=== PATIENT | female | born 1985 | race Caucasian/White ===

== ENCOUNTER 2016-12-31 19:38 | Observation (INO) ==
[2016-12-31] MEDS ORDERED: BENZTROPINE 2 MG/2 ML AMP ONE ×3 (19:51→21:15)
[2016-12-31] MEDS ORDERED: BENZTROPINE 2 MG/2 ML AMP IV ONE ×2 (19:55→21:16)
[2016-12-31] MEDS ORDERED: LORazepam 2 MG/1 ML VIAL IV STA (20:02)
[2016-12-31] MEDS ORDERED: LORazepam 2 MG/1 ML VIAL ONE (20:03)
--- NOTE | 2016-12-31 20:22 | EKG Report ---
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
[2016-12-31] MEDS ORDERED: SODIUM CHLORIDE 0.9% 1,000 ML IV STA (20:23)
--- NOTE | 2016-12-31 20:47 | CT Report ---
History: Agitation and irritability. Involuntary movements. Headaches Date: 12/31/2016 Study: CT head without contrast Comparison exam: No previous head CT available Transaxial CT sections were obtained through the head without IV contrast. Total DLP measures 1042.6 mGy*cm. The CT exam was performed using one or more of the following dose reduction techniques: Automated exposure control and adjustment of the mA and/or kV according to patient size. The ventricles are midline in position without evidence of hydrocephalus. There is no mass or parenchymal hemorrhage. There is no gross CT evidence of acute cortical stroke. There is no extra-axial hematoma. The partially visualized paranasal sinuses and mastoid air cells are clear. There is no acute extra-axial hematoma. Impression: No acute intracranial process PROCEDURE INTERPRETED AT [facility] DEPARTMENT OF RADIOLOGY Final Report Signed by: Dr. Melanie Flood
[2016-12-31 20:51] LABS: Basophils # 0.1 10*3/uL (0.0-0.2); Basophils % 0.7 % (0.0-0.8); Eosinophils # 0.1 10*3/uL (0.0-0.87); Eosinophils % 1.1 % (0.00-10.9); Hematocrit 37.8 VOL% (35.7-47.0); Hemoglobin 12.6 GM/DL (12.0-16.0); Immature Granulocytes % 0.1 %; Immature Granulocytes Absolute 0.01 #; Lymphocytes # 1.7 10*3/uL (1.4-4.0); Lymphocytes % 23.1 % (21.3-54.2); Mean Corpuscular HGB Conc 33.3 GM/DL (32-36); Mean Corpuscular Hemoglobin 29 PG (27-34); Mean Corpuscular Volume 87.5 FL (87-102); Mean Platelet Volume 9.4 FL (9.6-12.0); Monocytes # 0.6 10*3/uL (0.11-0.8); Monocytes % 7.9 % (1.7-12.7); Neutrophils # 4.8 10*3/uL (1.4-7.4); Neutrophils % 67.1 % (38.7-73.9); Platelet Count 280 T/CUMM (130-400); Red Blood Count 4.32 MC/CUMM (3.8-5.5); Red Cell Distribution Width 12.1 % (9.3-17.3); White Blood Count 7.2 T/CUMM (4-12)
--- NOTE | 2016-12-31 20:57 | XRay Report ---
History: Chest pain Date: 12/31/2016 Study: Chest x-ray single view portable Comparison exam: Chest x-ray January 12, 2009 The cardiomediastinal silhouette and pulmonary vasculature are unremarkable. The lungs are well-expanded and clear. There is no gross pleural effusion. The osseous structures are unchanged. Impression: No acute cardiopulmonary process compared to the previous study PROCEDURE INTERPRETED AT [facility] DEPARTMENT OF RADIOLOGY Final Report Signed by: Dr. Melanie Flood
--- NOTE | 2016-12-31 20:59 | Emergency Department Note ---
IKane Kasabria, am scribing for, and in the presence of, Weston Marks MD 19:59. IKendrick Charles R, MD, personally performed the services described in this documentation, ascribed by Marilyn Middleton in my presence, and it is both accurate and complete . Arrival - Arrival Chief Complaint: Non-Specific ED Nursing Triage Note: C/O Aggitation/Irritability and involuntary movements s/ p taking Imatrex for migraine. Family reports that she developed headache while shopping today went home and took an imatrex which is prescribed PRN for migraines and she has taken in the past. Pt took cymbalta which she has been on for about a month earlier in the day. Pt reports that she felt very aggitated/ irritable and angry after taking the imatrex, she has never taken the two medications in the same day before. Pt was given Benadryl 20mg/Versed 5mg by EMS with relief of aggitation Mode of Arrival: Stretcher Source: Patient Time Seen by Provider: 12/31/16 19:42 - History of Present Illness HPI Narrative: This is a 31 y/o white female presenting to the ED with c/o irritability and involuntary movements that onset this after s/p taking Imatrex for migraine. Family states this is the first time the pt has take Imatrex and Cymbalta in conjunction. According to the family the pt developed a headache while shopping today so she went home and took Imatrex which was prescribed to her by a PRN for migraines. Pt has not taken this medication since becoming four years ago. After taking the medications she became angry and felt agitated. Pt began shaking uncontrollably. EMS arrived and gave the pt Benadryl 20mg/ Versed which she responded well to and relieved her agitation. Family states she had a TMJ previously and was prescribed Lyrica. She only took this medication once and did not like the way it made her feel. Pt appears lethargic but denies fever , chills, nausea, vomiting, diarrhea, numbness, tingling, vision change, chest pain, SOB, and airway compromise. Her PMHx is unremarkable. Consistency: constant Severity: moderate Date of Last Menstrual Period: 4 weeks ago- Pt has IUD in place Allergies/Adverse Reactions: Allergies Allergy/AdvReac Type Severity Reaction Status Date / Time Pertussis Vaccines Allergy Intermediate RASH Verified 12/31/16 19:42 promethazine [From Phenergan] AdvReac Severe Shakiness Verified 12/31/16 21:23 tramadol [From Ultram] AdvReac Severe Shakiness Verified 12/31/16 21:22 Home Medications: Home Medications Medication Instructions Recorded Confirmed Type Unable To Obtain [Unable to Obtain] 12/31/16 12/31/16 History Review of System - Review of System 12 point system: reviewed and no additional remarkable complaints except as stated - Review of System Constitutional: Absent: chills, fever, weakness Eyes: Absent: vision change Head/Ears/Nose/Throat: Absent: nasal drainage Respiratory: Absent: cough, wheezing Cardiovascular: Absent: chest pain, dyspnea on exertion, syncope Gastrointestinal: Absent: abdominal pain, nausea, vomiting Genitourinary female: Absent: dysuria Musculoskeletal: Absent: arm pain, back pain, leg pain, neck pain Skin: Absent: rash Neurological: Absent: headache, weakness, numbness, confusion, abnormal gait, vertigo Psychiatric: Absent: anxiety Endocrine: Absent: fatigue Hematological/Lymphatic: Absent: easy bleeding Medical,Surgical,& Family Hx - Medical History Psychological: History of: Depression Neurology: History of: Migraine - Social History Smoking Status: Never smoker Frequency of Alcohol Use: None Type of Drug Use: None Exam Vital Signs: Vital Signs Temperature 98.9 F 12/31/16 19:38 Pulse Rate 95 H 12/31/16 21:13 Respiratory Rate 15 12/31/16 21:13 Blood Pressure 115/75 12/31/16 21:13 O2 Sat by Pulse Oximetry 100 12/31/16 21:13 - General General appearance: alert, in no apparent distress, other (EPS) - Head Head exam: Present: atraumatic, normocephalic, normal inspection - Eye Eye exam: Present: PERRL, EOMI, nystagmus (vertical ). Absent: normal appearance - ENT ENT exam: Present: normal exam, normal oropharynx, mucous membranes moist, TM's normal bilaterally, normal external ear exam - Neck Neck exam: Present: normal inspection, full ROM, trachea midline. Absent: tenderness - Chest Chest inspection: Present: normal inspection, symmetric chest wall rise. Absent : tenderness - Respiratory Respiratory exam: Present: normal lung sounds bilaterally - Cardiovascular Cardiovascular exam: Present: regular rate, normal rhythm, normal heart sounds - Abdominal Exam Abdominal exam: Present: soft, normal bowel sounds. Absent: distention, tenderness - Extremities Exam Extremities exam: Present: normal inspection, full ROM, normal capillary refill. Absent: tenderness, pedal edema, calf tenderness - Back Exam Back exam: Present: normal inspection, full ROM. Absent: tenderness - Neurological Exam Neurological exam: Present: alert, oriented X3, CN II-XII intact, normal gait. Absent: reflexes normal (hyperreflexia ) - Psychiatric Psychiatric exam: Present: normal affect, normal mood - Skin Skin exam: Present: warm, dry, intact, normal color. Absent: rash, diaphoresis Course Course Narrative: Medication the patient takes is Adderall XR daily, Cymbalta, Imitrex as needed - Reevaluation(s) Reevaluation #1: Patient doing much better sleeping comfortably no more EPS symptoms Time: 20:59 - Consultations Consultation #1: Dr. Glynn will admit patient Time: 21:48 Results - Labs CBC & BMP: 12/31/16 20:18 12/31/16 20:18 Lab Results: I have reviewed the patients labs Critical Care Time Critical Care Time: Yes Total Critical Care Time: 60 Disposition Clinical Impression: Adverse medication side effect, Extrapyramidal movements present Case discussed with: patient, patient's family Disposition: Still a Patient Condition: Stable Time of Disposition: 21:49
[2016-12-31 21:09] LABS: Alanine Aminotransferase 27 U/L (13-56); Albumin 3.7 G/DL (3.4-5.0); Alkaline Phosphatase 50 U/L (45-117); Aspartate Amino Transferase 18 U/L (0-37); Bilirubin,Total < 0.39 MG/DL (0.2-1.0); Blood Urea Nitrogen 14 MG/DL (7-18); Calcium 8.9 MG/DL (8.5-10.1); Glucose 75 MG/DL (74-106); Osmolality,Calculated 291.4 MOS/KG (273-304); Potassium 4.1 MMOL/L (3.5-5.1); Sodium 147 MMOL/L (136-145); Total Protein 6.2 G/DL (6.4-8.3); Troponin I Only < 0.015 NG/ML (0.00-0.045)
[2016-12-31 21:22] LABS: Amorphous Crystals,Urine Occasional /HPF (Few); Apearance,Urine CLOUDY (Clear); Bacteria,Urine Occasional /HPF (Few); Bilirubin,Urine Negative (Negative); Blood, Urine Negative (Negative); Glucose,Urine (UA) Negative (Negative); Ketones,Urine Negative (Negative); Mucus,Urine Occasional /LPF (Occasional); Nitrite,Urine Negative (Negative); Protein,Urine Negative; Squamous Epithelial Cell,Urine Occasional /HPF (0-10); Urine Color Yellow (Yellow); Urine Specific Gravity 1.014 (1.001-1.035); Urine Urobilinogen < 2.0 EU/DL (0.2-1.0)
[2016-12-31 21:30] LABS: Barbiturates Screen,Urine Negative (Negative); Benzodiazepines Screen,Urine Positive (Negative); Cannabinoid Screen,Urine Negative (Negative); Opiate Screen,Urine Negative (Negative); Phencyclidine Screen,Urine Negative (Negative)
[2016-12-31] MEDS ORDERED: ACETAMINOPHEN 325 MG TABLET PO PRN (21:36)
[2016-12-31] MEDS ORDERED: ONDANSETRON 4 MG/2 ML VIAL IV PRN (21:36)
[2016-12-31] MEDS ORDERED: BENZTROPINE 2 MG/2 ML AMP IM PRN (22:19)
[2016-12-31] MEDS ORDERED: diphenhydrAMINE 50 MG/1 ML VIAL IV PRN (22:19)
[2016-12-31] MEDS ORDERED: LORazepam 2 MG/1 ML VIAL IV PRN (22:21)
--- NOTE | 2016-12-31 22:23 | Hospitalist History & Physical ---
Assessment and Plan (1) Extrapyramidal movements present Status: Acute Assessment and plan: admit for observation. This is liekly a medication reaction from the combination of cymbalta and imitrex. Treat with Benadryl and Cogentin PRN as well as Ativan PRN Hydrate with IVF. Home in AM if movements have improved. Current Visit: Yes History of Present Illness Chief complaint: Muscle spasms and agitation History of present illness: Ms. Mars is a 31 year old female that presented to the ED with c/o irritability and involuntary movements that started this evening after taking Imitrex for migraines. She reports having a migraine for the last 2 days. She has had them before. Family states this is the first time the patient has take Imitrex and Cymbalta together. According to the family, the patient developed a headache while shopping today so she went home and took Imitrex which was prescribed PRN for migraines. Pt has not taken this medication since becoming four years ago. After taking the medications she became angry and felt agitated. Pt began shaking uncontrollably. EMS arrived and gave the pt Benadryl and Versed which she responded well to and relieved her agitation. Family states she had TMJ previously and was prescribed Lyrica. She only took this medication once and did not like the way it made her feel. Pt appears lethargic but denies fever, chills, nausea, vomiting, diarrhea, numbness, tingling, vision change, chest pain, SOB, and airway compromise. Her PMHx is significant for Fibromyalgia treated with cymbalta and migraines. The history was relayed by the patients spouse due to her being sedated with cogentin, benadryl and ativan in the ER. She appears much more comfortable now. I have been asked to admit the patient for observation for her EPS sx's. At the time of my exam, the patients EPS movements had improved with treatment in the ER. Home Medications Medication Instructions Recorded Confirmed Type Unable To Obtain [Unable to Obtain] 12/31/16 12/31/16 History Allergies Allergy/AdvReac Type Severity Reaction Status Date / Time Pertussis Vaccines Allergy Intermediate RASH Verified 12/31/16 19:42 promethazine [From Phenergan] AdvReac Severe Shakiness Verified 12/31/16 21:23 tramadol [From Ultram] AdvReac Severe Shakiness Verified 12/31/16 21:22 Medical,Surgical,& Family Hx - Medical History Cardio: No history of: Hypertension (hx of low BP) Psychological: History of: Depression Neurology: History of: Migraine Rheumatology: History of;: Fibromyalgia - Surgical History Abdominal Surgeries: Surgical HX of: Cholecystectomy Reproductive Surgeries: Surgical HX of;: Section - Family History Family History: Reports;: Additional Family History (mother with esophageal Cancer) - Social History Smoking Status: Former smoker Have you smoked in the last 12 months: No Frequency of Alcohol Use: None Type of Drug Use: None Marital Status: Lives With:: Spouse Functional capacity: independent ambulation ROS unobtainable: due to mental status (sedated with benadryl, ativan and cogentin) Exam - Constitutional Vitals: Period Temp Pulse Resp BP Sys/Cazares Pulse Ox Last 24 Hr 98.9 F-98.9 F 95-111 15-28 114-123/72-83 99-100 General appearance: no acute distress - Head Head exam: Present: normal inspection, normocephalic, atraumatic - ENT ENT exam: Present: normal exam - Neck Neck exam: Present: normal inspection. Absent: lymphadenopathy - Respiratory Respiratory exam: Present: clear to auscultation bilaterally - Cardiovascular Cardiovascular exam: Present: regular rate and rhythm - GI/Abdominal GI/Abdominal exam: Present: normal bowel sounds, soft. Absent: tenderness, rebound - Extremities Exam Extremities exam: Present: normal inspection. Absent: edema - Neurological Exam Neurological exam: Present: other (sleepy/sedated after medication administration in ER) - Skin Skin exam: Present: normal color, warm, dry Results - Labs CBC & BMP: 12/31/16 20:18 12/31/16 20:18 Lab Results: I have reviewed the past 24 hour labs - Diagnostic Findings Procedure: Chest x-ray: image reviewed by me, report reviewed by me, CT: image reviewed by me, report reviewed by me
[2016-12-31] MEDS: DEXTROSE 5% NACL 0.45% 1,000 ML IV SCH (23:41)
[2017-01-01 04:56] LABS: Calcium 7.9 MG/DL (8.5-10.1); Magnesium 2.2 MG/DL (1.8-2.4); Osmolality,Calculated 293.3 MOS/KG (273-304); Potassium 3.9 MMOL/L (3.5-5.1)
[2017-01-01] MEDS: DEXTROSE 5% NACL 0.45% 1,000 ML IV SCH (10:27)
[2017-01-01 12:16] VITALS: BP 100/54
--- NOTE | 2017-01-01 15:05 | Discharge Summary ---
Hospital Course - Hospital Course Hospital Course: Ms. Mars is a 31 year old female that presented to the ED with c/o irritability and involuntary movements that started this evening after taking Imitrex for migraines. She reports having a migraine for the last 2 days. She has had them before. Family states this is the first time the patient has taken Imitrex and Cymbalta together. According to the family, the patient developed a headache while shopping today so she went home and took Imitrex which was prescribed PRN for migraines. Pt has not taken this medication since becoming four years ago. After taking the medications she became angry and felt agitated. Pt began shaking uncontrollably. EMS arrived and gave the pt Benadryl and Versed which she responded well to and relieved her agitation. Patient was admitted, given ativan prn, benadryl prn and benbenztropine prn for her symptoms. CT head without acute process. This morning patient is much improved. Still having some involuntary movements but much improved. She does report some blurry vision, which has improved slightly throughout the day. She really wants to be discharged. She is stable and will be discharged. I will give her ativan and benztropine prn at discharge. - Time spent with patient Time with patient DS: Less than 30 minutes Diagnosis - Discharge Diagnosis (1) Medication side effect Status: Acute (2) Extrapyramidal movements present Status: Acute Discharge Plan - Discharge Data Condition at Discharge: Stable Discharge Diet: advance to your usual diet Activity: resume usual activities as tolerated Hygiene: no restrictions Contact your physician if you experience:: fever over 101 - Discharge Medications New Benztropine Tab [Cogentin Tab] 1 mg PO TID PRN #30 tablet PRN Reason: Tremors LORazepam TAB [Ativan Tab] 1 mg PO TID #30 tablet - Follow Up or Referral - Forms/Instructions Exam - Constitutional Vitals: Period Temp Pulse Resp BP Sys/Cazares Pulse Ox Last 24 Hr 97.2 F-98.3 F 79-90 18-20 94-117/52-70 97-100 General appearance: normal weight - Head Head exam: Present: normocephalic, atraumatic - Eye Eye exam: Present: EOMI Pupils: Present: LUKE - ENT ENT exam: Present: normal exam, normal oropharynx - Neck Neck exam: Present: normal inspection. Absent: tenderness - Respiratory Respiratory exam: Present: clear to auscultation bilaterally. Absent: rales, wheezes - Cardiovascular Cardiovascular exam: Present: regular rate and rhythm - GI/Abdominal GI/Abdominal exam: Present: normal bowel sounds, soft. Absent: tenderness - Extremities Exam Extremities exam: Present: normal inspection - Back Exam Back exam: Present: normal inspection - Neurological Exam Neurological exam: Present: alert, oriented X3 - Psychiatric Psychiatric exam: Present: normal affect, normal mood - Skin Skin exam: Present: warm, intact Discharge Results Labs on day of discharge: Labs from last 24 hours 01/01/17 03:28 Sodium 148 H Potassium 3.9 Chloride 113 H Carbon Dioxide 25 Anion Gap 13.9 BUN 13 Creatinine 0.60 GFR Calculation 118 BUN/Creatinine Ratio 21.00 H Glucose 91 Calculated Osmolality 293.3 Calcium 7.9 L Magnesium 2.2 DS: Provider Date of admission: 12/31/16 21:36 Primary care physician: . No PCP Attending physician on admission: Donnell Novoa MD Discharging clinician: Donnell Novoa MD
== END 2017-01-01 16:00 | disposition home or self-care (01) ==
LOC: N.ED 19:38 → N.EDINP 19:38 → N.2E 22:29
PROVIDERS: ADMIT Internal Medicine; ATTEND Internal Medicine